=== PATIENT | male | born 1995 | race Two or more races ===

== ENCOUNTER 2019-10-15 12:06 | Emergency (ER) | payer BC ==
[2019-10-15 12:24] VITALS: TEMP 97.9; BMI 34.4
--- NOTE | 2019-10-15 13:07 | PDOC ---
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 Mr Bean reports that he had an injury at work about 2 years ago in which he was pulled down stairs by his arms. Since then, he has had pain in his neck and shoulders, but the pain has worsened significantly over time. He now reports pain that shoots down both arms from his neck and shoulders. The pain occurs with any movement of his arms or head. He also notes weakness in both hands that has also worsened over time. Additionally, Mr Bean reports pain at the base of his neck when touched. The pt's mother states that he had an MRI previously at an [facility] about a year ago showing a disc herniation, but she does not know what level or if there was any impingement on nerves. He went to see orthopedics (Dr Tyler) today and was told he needed to come to the ED for an MRI. The pt states that Dr Tyler already contacted Dr Narayan. Mr Bean denies any recent fevers/chills, limited ROM in his arms, leg weakness, difficulty walking, numbness/tingling in his extremities, headaches, or other recent symptoms. Past History - Past Medical History Allergies/Adverse Reactions: Allergies Allergy/AdvReac Type Severity Reaction Status Date / Time No Known Allergies Allergy Verified 10/15/19 12:20 COPD: No - Immunization History Immunization Up to Date: Yes - Psycho Social/Smoking Cessation Hx Smoking History: Never smoked Information on smoking cessation initiated: No Hx Alcohol Use: No Drug/Substance Use Hx: No Review of Systems - Review of Systems Comments:: General: No fevers, no chills, no weight or appetite change, no malaise HEENT: No changes in vision, no changes in hearing, no congestion, no sore throat CV: No chest pain, no palpitations, no LE edema Pulm: No SOB, no cough, no wheezing GI: No nausea or vomiting, no change in bowel habits, no melena : No frequency, no urgency, no dysuria Musc: See HPI Skin: No rash, no lesions, no erythema Endo: No excessive thirst, no heat/cold intolerance Heme: No unusual bruising or bleeding, no swollen glands Neuro: No syncope, no numbness/tingling. See HPI Vasc: No claudication Psych: No recent change in mood, no SI or HI *Physical Exam - Vital Signs Last Vital Signs Temp Pulse Resp BP Pulse Ox 97.9 F 85 17 112/60 99 10/15/19 12:20 10/15/19 12:20 10/15/19 12:20 10/15/19 12:20 10/15/19 12:20 - Physical Exam General: Comfortable, no acute distress HEENT: PERRL, EOMI, MMM, voice normal, normal neck ROM but pain at ~C7 with head movement or with palpation at posterior neck Cards: RRR, no murmur appreciated Pulm: Comfortable on room air, clear to auscultation bilaterally Abd: Soft, nontender, nondistended Ext: Atraumatic. No LE edema. ROM intact. Weakness noted in BUE, distal strength less than proximal strength. 4/5 at shoulders, 3/5 at hands. No focal TTP. Skin: Normal color, no rashes or lesions Neuro: A&Ox3, CN grossly intact, normal speech. Diminished sensation in distal BUE, L>R, greatest at dorsal 4th and 5th left fingers. 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 He denies any recent fevers/chills, limited ROM in his arms, leg weakness, difficulty walking, numbness/tingling in his extremities, headaches, or other recent symptoms. - MRI c-spine per ortho and neurosurgery request - Preop labs in case pt requires intervention - Will call Dr Tyler for additional info 10/15/19 13:34 - Spoke to Dr Tyler. Reports that he is concerned about cord compression secondary to the pt's previous trauma as he now has weakness in the bilateral upper extremities, hyperreflexia. Discussed case w/ Dr Narayan. Would like to be called when MRI is completed - Non-contrast MRI cervical spine ordered. MRI called, will be able to complete scan today 10/15/19 15:14 - Labs without concerning abnormalities - Pt waiting for MRI. Safety sheet completed and faxed by nurse Frey 10/15/19 18:11 - MRI completed. Reviewed in ED w/ Dr Tyler. No obvious abnormality appreciated. Radiology report pending - Dr Narayan updated 10/15/19 18:46 - Spoke to Dr Narayan. Also does not appreciate any significant findings on the MRI. Pt may follow up as an outpatient - Official read still pending 10/15/19 19:41 - MRI w/ no cord compression, lesion, spinal stenosis or disc herniation - Will d/c home to follow up with neurosurgery Discussed with Dr Elyssa Titus PGY2 Discharge - Discharge Information Problems reviewed: Yes Clinical Impression/Diagnosis: Upper extremity weakness Condition: Stable Disposition: HOME - Admission No - Follow up/Referral Referrals: Kiran Narayan MD, [facility] [Staff Physician] - Jung Tyler DO [Staff Physician] - - Patient Discharge Instructions Patient Printed Discharge Instructions: DI for Muscle Weakness Additional Instructions: Discharge Instructions: You were seen in the emergency department for arm weakness. You had an MRI that did not show any concerning findings. Home Care and Follow Up: - You may take ibuprofen 600mg (Advil, Motrin) or acetaminophen 650-1000mg ( Tylenol) every 6-8 hours as needed for pain. If needed for continued pain, you may take both at the same time or alternate every 3-4 hours. - Make an appointment to follow up with neurosurgery, Dr Narayan, within the next 1-2 weeks. - Seek immediate medical care if you have worsening symptoms, you are unable to move your arms, you have bowel or bladder incontinence, you have difficulty walking, or you have any other medical emergency. - Post Discharge Activity
[2019-10-15] MEDS ORDERED: DEXAMETHASONE SOD PHOSPHATE 10 MG/1 ML VIAL IM ONE (13:16)
[2019-10-15] MEDS ORDERED: DEXAMETHASONE SOD PHOSPHATE 10 MG/1 ML VIAL ONE (13:26)
[2019-10-15 13:57] LABS: BASO % 0.5 % (0-2.0); EOS % 5.3 % (0-4.5); HEMATOCRIT 44.3 % (35.4-49); HEMOGLOBIN 14.8 GM/dL (11.7-16.9); LYMPH % 31.5 % (8-40); MCH 28.1 pg (25.7-33.7); MCHC 33.4 g/dl (32.0-35.9); MEAN PLT VOLUME 8.6 fl (7.5-11.1); MONO % 8.9 % (3.8-10.2); NEUT % 53.8 % (42.8-82.8); PLATELET COUNT 249 K/MM3 (134-434); RBC 5.28 M/mm3 (4.00-5.60); RDW 13.6 % (11.9-15.9); WHITE BLOOD COUNT 5.9 K/mm3 (4.0-10.0)
[2019-10-15] MEDS ORDERED: DEXAMETHASONE 4 MG TABLET (FP) PO ONE (14:05)
[2019-10-15 14:14] LABS: INR 1.03 (0.83-1.09); PROTHROMBIN TIME (PATIENT) 12.1 SEC (9.7-13.0)
[2019-10-15 14:16] LABS: ACTIVATED PTT 28.2 SECONDS (25.2-36.5)
[2019-10-15 14:26] LABS: ALBUMIN 3.9 g/dl (3.4-5.0); BILIRUBIN,TOTAL 0.2 mg/dL (0.2-1); BLOOD UREA NITROGEN 17.9 mg/dL (7-18); CALCIUM 9.1 mg/dL (8.5-10.1); POTASSIUM 3.9 mmol/L (3.5-5.1); TOT PROT 7.1 g/dl (6.4-8.2)
[2019-10-15] MEDS ORDERED: diazePAM 5 MG TABLET PO ONE (15:58)
--- NOTE | 2019-10-15 16:03 | PDOC ---
Attending Attestation - Resident Resident Name: ArielaIrene - ED Attending Attestation I have performed the following: I have examined & evaluated the patient, The case was reviewed & discussed with the resident, I agree w/resident's findings & plan, Exceptions are as noted - HPI HPI: 10/15/19 15:59 24 yo male h/o h/o prior injury, chronic neck and back pain, was in orthopedics office today for neck and shoulder pain. pt states he has had progressively worsening pain and weakness in his right arm for one year. has had prior MRI which showed hernated disc. no f/c no iv injection in past.has been taking naproxen and robaxin at home min relief. does see pain mangement docotr. today DR Rodriguez was concerned for possible cord compromise central stenosis , sent for emergency mri. pt denies bowel or bladder incontinence. - Physicial Exam PE: 10/15/19 16:01 Awake alert no acute distress lungs are clear bilaterally heart is regular without murmurs rubs or gallops abdomen is soft and nontender extremities are warm well perfused neurological exam reveals patient has 4 out of 5 on left tricep extension 5 out of 5 bilateral bicep flexion 4+ out of 5 on left wrist extension but 5 out of 5 on wrist flexion. Right wrist is fully intact. Patient has mild weakness with bilateral arm abduction at the shoulders. Sensation is decreased in the median radial and ulnar nerve aspects of the left arm to light touch. Bilateral legs are 5 out of 5 throughout and sensation is intact - Medical Decision Making 10/15/19 16:03 24-year-old male history of previous herniated disc and prior injury here today complaining of 1 year of progressively worsening bilateral upper extremity weakness numbness and tingling on exam patient does have neurological deficits worse in the left upper extremity of weakness and decreased sensation will obtain MRI. Patient was given Decadron 10 mg will discuss findings with Dr. Pena who is been consulted previously by Dr. Mederos
[2019-10-15] MEDS ORDERED: diazePAM 5 MG TABLET ONE (16:33)
[2019-10-15 16:36] VITALS: BP 122/82; PULSE 82
== END 2019-10-15 19:51 | disposition home or self-care (01) ==
LOC: JER 12:06
DX: R29.898 Other symptoms and signs involving the musculoskeletal system (principal); M62.81 Muscle weakness (generalized); Z87.828 Personal history of other (healed) physical injury and trauma
CPT/HCPCS: 36415; 72141-TC; 80053; 85025; 85610; 85730; 86850; 86900; 86901; 99282-25